=== PATIENT | male | born 1935 | race Caucasian/White ===

== ENCOUNTER → 2020-05-25 08:22 | Outpatient (CLI) | payer MEDICARE, BC ==
--- NOTE | 2020-05-29 08:09 | ST ---
PATIENT:RADHA ESCALANTE MEDICAL RECORD: [id number] SEX: M LOCATION:[facility] ORDER #: ADMISSION DATE: 05/25/20 AGE OF PATIENT: 84 REFERRING PHYSICIAN: INTERPRETING PHYSICIAN: GERARDO ANDERSON MD DATE OF SERVICE: 05/25/2020 NUCLEAR STRESS TEST GATED: Gated is normal with normal wall motion and normal EF 71%. SPECT IMAGING: SPECT imaging was performed. Short axis view: Short axis view shows reversible defect along the inferior base. This is concerned in the horizontal axis with a reversible defect along the inferior base. Vertical axis: Vertical axis shows good update along the septum. FINAL IMPRESSION: 1. Normal gated. Normal EF 71%. 2. Abnormal SPECT imaging with a reversible defect along the inferior base seen in 2 views. Final recommendation: Scan is concerning for underlying ischemic coronary artery disease. LV function remains normal. Consider diagnostic angiography if clinically indicated. TRANSINT:[id number] Voice Confirmation ID: [id number] DOCUMENT ID: [id number] GERARDO ANDERSON MD at 0809 CC: [id number] DICTATION DATE: 05/26/20 1113 ASSEMBLER WATCH TRAIN: 05/27/20 0336 DEP CLI 05/25/20 [facility] [address] [place] [address]
--- NOTE | 2020-05-29 08:09 | EC ---
PATIENT:RADHA ESCALANTE DATE OF SERVICE: 05/25/20 SEX: M MEDICAL RECORD: [id number] DATE OF : 39 LOCATION:[facility] AGE OF PATIENT: 84 ADMISSION DATE: 05/25/20 REFERRING PHYSICIAN: INTERPRETING PHYSICIAN: GERARDO ANDERSON MD ECHOCARDIOGRAM REPORT ECHO CHARGES 4 ECHO COMPLETE Date: 05/25/20 CLINICAL DIAGNOSIS: DYSPNEA, ASSESS EF ECHOCARDIOGRAPHIC MEASUREMENTS (adult normal given) AC root (d.<3.7cm) 3.3 cm LV Septum d (<1.2 cm> 1.4 cm Valve Excursion 1.5 cm LV Septum (systole) 1.6 cm Left Atria (s.<4.0cm> 3.5 cm LVPW d(<1.2cm) 1.6 cm RV (d.<2.3cm) 3.1 cm LVPW (sytole) 1.7 cm LV diastole(<5.6CM) 5.0 cm MV E-F(>70mm/sec) cm LV systole 3.0 cm LVOT Diameter 2.0 cm MV exc.(>10mm) 1.5 cm Est.ejection fraction (50-75%) % DOPPLER: LVIT cm/sec A 101.0cm/sec E 66.0 cm/sec LA cm/sec RVSP 28 mmHg LVOT 106 cm/sec AOP1/2T m/s Asc. Ao 170 cm/sec RVOT 72 cm/sec RA cm/sec PA 122 cm/sec AV Gradient Peak 11.55mmHg AV Mean 5.89 mmHg AV Area 2.4 cm MV Gradient Peak 4.25 mmHg MV Mean 1.62 mmHg MV Area cm COMMENTS: Fancy Needleworker: 2 CRISTOFER JOHN Putty Maker: 3 Dr. Campbell TAPE# PACS Pericardial Effusion N DATE OF SERVICE: Adequate 2D, color flow imaging, spectral Doppler, and M-Mode. FINDINGS: LVH present. LV internal dimension is normal. Wall motion is normal. EF is greater than or equal to 55%. Aortic valve sclerosis without stenosis by Doppler interrogation. Left atrium is normal at 3.5 cm. Mitral valve shows no prolapse. Trace MR. Right side is grossly normal. Mild TR. TRANSINT:[id number] Voice Confirmation ID: [id number] DOCUMENT ID: [id number] ECHOCARDIOGRAM REPORT [id number] RADHA ESCALANTE,GERARDO Betts MD at 0809 CC: [id number] DICTATION DATE: 05/26/20931 DISC PAD GRINDING MACHINE FEEDER: 05/26/201958 DEP CLI 05/25/20 [place] [id number] [place] [address]
== END | disposition home or self-care (01) ==
LOC: D.HCCARDIO 08:22
PROVIDERS: ATTEND Internal Medicine Interventional Cardiology
DX: R06.02 Shortness of breath (principal)

== ENCOUNTER 2020-06-06 06:58 | Day surgery (SDC) | payer MEDICARE, BC ==
[~2020-06-06] VITALS: Ht 182.9 cm; Wt 83.5 kg
--- NOTE | ~2020-06-06 | HEMODYNAMI ---
PATIENT:RADHA ESCALANTE MEDICAL RECORD: [id number] : 39 [facility]ATION[facility] ADMISSION DATE: 06/06/20 Generatedon:19:14 Patient name: RADHA ESCALANTE Patient #: [id number] SSN: [id number] : 1935 Date of study: 06/06/2020 Page: Of Hemodynamic Procedure Report Patient Data Patient Demographics Procedure consent was obtained First Name: RADHA Gender: Male Last Name: AVA : 1935 Patient #: [id number] Age: 84 year(s) Race: SSN: [id number] Additional ID: [id number] Contact details [address]: [address] [place] [address] [place] State: [place] City: [place] Zip code: [address] Past Medical History Performed procedures and imaging results Date Procedure Procedure Results Comments 05/25/2020 Stress testing Positive->Intermediate with SPECT MPI risk Allergies: No known allergies Admission Admission Data Admission Date: 06/06/2020 Admission Time: 6:58 Arrival Date: 06/06/2020 Arrival Time: 0:00 Admit Source: Other Insurance Payor: Medicare [facility] #: [id number] Height (in.): 72 BSA: 2.03 (m2) Height (cm.): 182.88 BMI: 24.28 (kg/m2) Weight (lbs.): 179 Weight (kg.): 81.19 Lab Results Lab Result Date: 06/06/2020 Lab Result Time: 0:00 Biochemistry Name Units Result Min Max BUN mg/dl 24 --(----)-* 7 18 Creatinine mg/dl 1.2 --(---*)-- 0.6 1.3 eGFR ml/min 61.98949 *-(----)-- 90 120 NONAFRICAN CBC Name Units Result Min Max Hematocrit % 38.2 *-(----)-- 42 54 Hemoglobin g/dl 12.8 -*(----)-- 13.5 17.5 Procedure Procedure Types Cath Procedure Diagnostic Procedure [facility] w/Coronaries Sedation Charges Moderate Sedation 25-39 minutes Procedure Description Procedure Date Procedure Date: 06/06/2020 Procedure Start Time: 8:46 Procedure End Time: 9:10 Procedure Staff Name Function Mateo Silver MD Performing Physician Paul Carlisle RN Nurse Cristela Crow RT Monitor Viri Lehman RT Scrub Indication Palpitations Procedure Data Cath Procedure Fluoroscopy Diagnostic fluoroscopy Total fluoroscopy Time: 1.9 time: 1.9 min min Diagnostic fluoroscopy Total fluoroscopy dose: 707 dose: 707 mGy mGy Contrast Material Contrast Material Type Amount (ml) Isovue 370 75 Entry Location Entry Primary Successful Side Size Upsize Upsize Entry Closure Succes sful Closure Location (Fr) 1 (Fr) 2 (Fr) Remarks Device Remarks Femoral Right 5 Fr Exoseal artery Estimated blood loss: 5 ml Diagnostic catheters Device Type Used For End Catheter Placement MULTIPACK JL 4.0 5Fr Procedure catheter MULTIPACK 3DRC 5Fr Procedure catheter MULTIPACK Pigtail 5 Fr Procedure catheter Procedure Complications No complications Procedure Medications Medication Administration Route Dosage 0.9% NaCl I.V. 100 ml/hr Oxygen etCO2 Nasal cannula 2 l/min Heparin Flush Bag added to field 2 bags (1000units/500ml NS) Lidocaine 2% added to field 20 Versed I.V. 1 mg Fentanyl I.V. 25 mcg Hemodynamics Rest BSA: 2.03 (m2) HGB: 12.8 (g/dl) O2 Consumption: Estimated: 230.07 (ml/min) O2 Co nsumption indexed: Estimated:113.33 (ml/min/m) Heart Rate: 69 (bpm) Pressure Samples Time Site Value (mmHg) Purpose Heart Use Rate(bpm) 8:58 LV 148/18,35 Snapshot 73 9:00 AO 138/73(101) Pullback 75 9:00 LV 129/-2,15 Pullback 75 Gradients Valve Time Site 1 Site 2 Mean SEP/DFP Peak To Heart Use (mmHg) (sec/min) Peak Rate (mmHg) (bpm) Aortic 9:00 LV AO 0 6 0 75 129/-2,15 138/73(101) Calculations Valve P-P Mean Valve Index Valve Source Name Gradient Area Flow (cm2) Aortic 0 0 0 0 Snapshots Pre Cath Intra NCS Post Cath Vital Signs Time Heart Resp SPO2 etCO2 NIBP (mmHg) Rhythm Pain Sedation Rate (ipm) (%) (mmHg) Status Level (bpm) 8:29:43 71 16 100 34.9 137/73(106) NSR 0 (11) 10(A) , No pain 8:33:59 74 17 100 34.8 124/71(91) NSR 0 (11) 10(A) , No pain 8:38:13 70 13 97 43 130/63(98) NSR 0 (11) 9(A) , No pain 8:42:27 69 13 98 35.6 119/67(96) NSR 0 (11) 9(A) , No pain 8:46:37 68 13 99 8.1 133/63(105) NSR 0 (11) 9(A) , No pain 8:50:51 68 12 99 29.6 114/67(81) NSR 0 (11) 9(A) , No pain 8:54:56 69 13 98 2.2 123/68(94) NSR 0 (11) 9(A) , No pain 8:59:08 76 13 99 37 114/61(85) NSR 0 (11) 10(A) , No pain 9:03:14 71 14 99 8.1 126/71(101) NSR 0 (11) 10(A) , No pain 9:07:24 70 13 100 37.1 129/67(111) NSR 0 (11) 10(A) , No pain 9:11:34 70 11 100 35.6 131/71(98) NSR 0 (11) 10(A) , No pain Medications Time Medication Route Dose Verified Delivered Reason Notes Effe ctiveness by by 8:33:30 0.9% NaCl I.V. 100 Paul Paul Per ml/hr Orestes Carlisle physician RN RN 8:33:38 Oxygen etCO2 2 Paul Paul for low 02 Nasal l/min Orestes Carlisle sats cannula RN RN 8:33:48 Heparin Flush added 2 Paul Paul used for Bag to bags Orestes Carlisle procedure (1000units/500ml field RN RN NS) 8:34:00 Lidocaine 2% added 20ml Paul Paul for local to vial Orestes Carlisle anesthetic field RN RN 8:34:12 Versed I.V. 1 mg Paul Paul for Lorigan Orestes sedation RN RN 8:34:24 Fentanyl I.V. 25 Paul Paul for mcg Lorigan Lorpablito sedation RN tire setter Log Time Note 7:59:07 Informed consent obtained and on chart 7:59:33 Diagnostic Cath Status : Elective 8:00:26 Arrival Date: 06/06/2020 12:00:00 AM 8:00:28 Admit Source: Other 8:01:18 Insurance Payor : Medicare 8:01:47 Patient Height : 72 inches 8:01:51 Patient Weight : 179 lbs 8:06:51 ACC Patient presents with Stable Angina CCS Anginal Class 2--Slight limitation of ordinary activity. 8:06:54 Procedure Status Elective Heart Cath (OP). 8:08:40 Time tracking: Regular hours (M-F 7:00 - 5:00) 8:08:45 Plan of Care:Hemodynamics will remain stable., Cardiac rhythm will remain stable., Comfort level will be maintained., Respiratory function will remain adequate., Patient/ family verbilizes understanding of procedure., Procedure tolerated without complication., Recovers from procedure without complications.. 8:09:29 H&P Date Dictated: 05/16/2020 Greater than 30 days; new H&P dictated by physician. Or brief H&P completed., Emergent; H&P N/A, Within 30 days and on chart., H&P Addendum completed by physician on day of procedure. (MUST COMPLETE FOR ALL OUTPATIENTS), ER History on chart., New H&P dictated by physician.. 8:09:50 Pre-procedure instructions explained to patient. 8:09:50 Pre-op teaching completed and patient verbalized understanding. 8:09:57 Family unavailable. 8:09:59 Patient NPO since Midnight. 8:10:06 Patient allergic to No known allergies 8:10:13 Alarms reviewed by R. N. 8:10:13 Sharps counted by scrub and verified by R.N. 8:17:11 Stress Test: yes; abnormal inferior 8:17:21 Paul Carlisle RN sent for patient. Start room use. 8:22:30 Patient received from Pre/Post Procedure Room to CCL 1 Alert and oriented. Tansferred to table in Supine position. 8:28:30 Warm blankets applied, and evelin hugger turned on for patient comfort. 8:28:31 Correct patient and procedure confirmed by team. 8:28:31 ECG and BP/O2 sat monitors applied to patient. 8:28:32 Vital chart was started 8:28:33 Full Disclosure recording started 8:28:37 Is the patient allergic to Iodine/contrast media? No. 8:28:39 Was the patient premedicated? Yes 8:28:40 Is patient on blood thinner?No 8:28:42 Patient diabetic? Yes. 8:28:43 If diabetic: On Metformin? Yes 8:28:50 If on Metformin: Last Dose? 06/04/2020 8:28:51 ----Pre-sedation anethsthesia assessment.---- 8:28:54 Previous problem with sedation/anesthesia? No ? 8:28:55 Snore? Yes 8:28:56 Sleep apnea? No 8:28:57 Deviated septum? No 8:28:58 Opens mouth fully? Yes 8:29:00 Sticks out tongue? Yes 8:29:03 Airway obstruction? No ? 8:29:05 Dentures? No ? 8:29:07 Pre procedure: right dorsailis pedis pulse 1+ Palpable, but thready & weak; easily obliterated 8:29:10 Modified Kiko's test Ulnar > 7 seconds. 8:29:13 Patient pain scale 0/10 ?. 8:29:19 IV patent on arrival in left antecubital with 0.9% NaCl at [facility]. 8:29:25 Right groin area was prepped with chlora-prep and draped in sterile fashion 8:30:48 Lab results completed and on chart. 8::54 Lab Result : BUN 24 mg/dl 8::54 Lab Result : Creatinine 1.2 mg/dl 8::54 Lab Result : eGFR NONAFRICAN 61.99401 ml/min 8::54 Lab Result : Hemoglobin 12.8 g/dl 8::54 Lab Result : Hematocrit 38.2 % 8:33:23 Risk of Mortality: 0.2 8:33:25 Risk of blood transfusion: 0.2 8:33:27 Risk of ROGELIO: 0.5 8:33:30 0.9% NaCl 100 ml/hr I.V. was administered by Paul Carlisle RN; Per physician; Verbal order read back and verified. 8:33:31 Baseline sample Acquired. 8:33:33 Rhythm: sinus rhythm 8:33:37 Use device set Femoral Dx 8:33:38 Oxygen 2 l/min etCO2 Nasal cannula was administered by Paul Carlisle RN; for low 02 sats; Verbal order read back and verified. 8:33:38 ACIST Syringe (21277) opened to sterile field. 8:33:39 Bag Decanter (2002S) opened to sterile field. 8:33:39 Medline Cath Pack ([id number]) opened to sterile field. 8:33:41 Tegaderm 4 x 4 (1626W) opened to sterile field. 8:33:42 DIAGNOSTIC Multipack 5Fr catheter set ([id number]) opened to sterile field. 8:33:42 ACIST Manifold (64046) opened to sterile field. 8:33:43 ACIST Hand Control (30284) opened to sterile field. 8:33:44 SHEATH 5FR [place] (TVI944) opened to sterile field. 8:33:45 EMERALD Guide Wire (870-048) opened to sterile field. 8:33:48 Heparin Flush Bag (1000units/500ml NS) 2 bags added to field was administered by Paul Carlisle RN; used for procedure; Verbal order read back and verified. 8:33:52 --------ALL STOP TIME OUT------ 8:33:53 Final Timeout: patient, procedure, and site verified with staff and physician. All members of the team are in agreement. 8:33:55 Right groin site verified by team. 8:33:58 Fire Safety Assessment: A--An alcohol-based skin anteseptic being used preoperatively., C--Open oxygen or nitrous oxide is being used., D--An ESU, laser, or fiber-optic light is being used. 8:34:00 Lidocaine 2% 20ml vial added to field was administered by Paul Carlisle RN; for local anesthetic; Verbal order read back and verified. 8:34:01 Physical assessment completed. ASA score P 2 - A patient with mild systemic disease as per Mateo Silver MD. 8:34:03 2) 60-89 Mildly reduced kidney function, and other findings (as for stage 1) point to kidney disease. 8:34:06 Maximum allowable contrast dose (3.7 X eGFR X 0.75)169 ml. 8:34:10 Sedation plan: IV Moderate Sedation Medication:Versed, Fentanyl 8:34:12 Versed 1 mg I.V. was administered by Paul Carlisle RN; for sedation; Verbal order read back and verified. 8:34:24 Fentanyl 25 mcg I.V. was administered by Paul Carlisle RN; for sedation; Verbal order read back and verified. 8:39:27 Patient allergic to No known allergies 8:40:02 Indication : Palpitations 8:45:52 Procedure started. 8:46:45 Local anesthetic to right femoral artery with Lidocaine 2% by Mateo Silver MD.INITIAL ACCESS ONLY 8:48:34 A 5 Fr sheath was inserted into the Right Femoral artery 8:49:36 A MULTIPACK JL 4.0 5Fr catheter was advanced over the wire and used for Procedure. 8:50:24 LCA angiography performed. 8:50:27 Injector settings: Ml/sec: 3, Volume: 6, 8:52:56 Catheter exchanged over wire. 8:53:11 A MULTIPACK 3DRC 5Fr catheter was advanced over the wire and used for Procedure. 8:55:57 RCA angiography performed. 8:55:59 Injector settings: Ml/sec: 3, Volume: 6, 8:57:11 Catheter exchanged over wire. 8:57:39 A MULTIPACK Pigtail 5 Fr catheter was advanced over the wire and used for Procedure. 8:58:58 LV gram done using INFANTE 8:58:58 LV hemodynamics recorded. 8:59:09 Injector settings: Ml/sec: 5, Volume: 15, 8:59:13 EF : 60 % 9:02:05 Catheter removed. 9:02:09 EXOSEAL 5Fr (EX500) opened to sterile field. 9:04:44 Sheath removed intact; hemostasis achieved with Exoseal to the Right Femoral artery. 9:04:52 Fluoroscopy time 01.90 minutes. 9:04:55 Fluoroscopy dose: 707 mGy 9:04:55 Flurop Dose total: 707 9:05:02 Dose Area Product 65765 mGy/cm. 9:06:04 Contrast amount:Isovue 370 75ml. 9:06:06 Procedure ended.(Physican Out) 9:06:14 Post-op/insertion site Right Femoral artery dressed using a 4 x 4 and Tegaderm. 9:06:19 Post right femoral artery:stable, soft, clean and dry 9:06:21 Post Procedure Pulses reassessed and unchanged 9:06:23 Post procedure: right dorsailis pedis pulse 1+ Palpable, but thready & weak; easily obliterated. 9:06:26 Post-procedure physical assessment completed. ASA score P 2 - A patient with mild systemic disease as per Mateo Silver MD. 9:06:29 Post procedure rhythm: unchanged. 9:06:32 Estimated blood loss: 5 ml 9:06:33 Post procedure instruction explained to patient.Patient verbalizes understanding. 9:06:34 Patient needs reinforcement of post procedure teaching. 9:08:07 Procedure type changed to Cath procedure, Diagnostic procedure, LHC, [facility] w/Coronaries, Sedation Charges, Moderate Sedation 25-39 minutes 9:09:09 Procedure and supply charges have been captured, reviewed, submitted and are correct. 9:09:13 Procedure Complication : No complications 9:09:19 [facility] Findings: MVD- CABG consult 9:09:20 Operative report dictated upon procedure completion. 9:09:21 See physician's report for complete and final results. 9:09:23 Report given to Pre/Post Procedure Room. 9:09:28 Patient transfered to Pre/Post Procedure Room with Stretcher. 9:10:29 Procedure ended. 9:10:29 Full Disclosure recording stopped 9:10:36 End room use (Document Last) 9:14:33 Vital chart was stopped Device Usage Item Name Manufacture Quantity Catalog Hospital Part Current Minimal L ot# / Number Charge Number Stock Stock Serial# Code ACIST Acist 1 68744 800854 607869 347351 20 Syringe DDN (92030) Systems Inc Bag Microtek 1 441639 02502 652036 5 Decanter Medical Inc. () Medline Medline 1 [id number] 630466 99541 231246 5 Cath Pack ([id number]) Tegaderm 4 3M 1 1626W 123274 220258 930896 5 x 4 (1626W) DIAGNOSTIC Cardinal 1 KS7833 550384 64837 374364 30 Mobstats Health 5Fr catheter set (VX2910) ACIST Acist 1 29426 925707 042711 630748 5 Manifold Medical (88425) Systems Inc ACIST Hand Acist 1 34163 763998 550382 827352 5 Control Medical (46451) Systems Inc SHEATH 5FR [place] 1 EQR309 119759 867396 269287 5 [place] (MWL494) EMERALD Cardinal 1 502-386 577961 195633 341394 5 Guide Wire Health (502-173) MULTIPACK Cardinal 1 832378 5 JL 4.0 5Fr Health catheter MULTIPACK Cardinal 1 484175 5 3DRC 5Fr Health catheter MULTIPACK Cardinal 1 973675 5 Pigtail 5 Health Fr catheter EXOSEAL 5Fr Cardinal 1 EX500 733526 965940 717184 10 (EX500) Health Signature Audit [place] Stage Time Signature Unsigned Intra-Procedure 06/06/2020 Cristela Crow 9:13:33 AM RT(R) Intra-Procedure 06/06/2020 Paul 9:14:17 AM Orestes RN Intra-Procedure 06/06/2020 Mateo Silver MD 9:14:32 AM Signatures Performing Physician : Signature : Mateo Silver MD Date : Time : Nurse : Paul Carlisle Signature : RN Date : Time : Monitor : Cristela Crow Signature : RT Date : Time : [facility] [address] [place] [address]
[2020-06-06] MEDS ORDERED: METFORMIN HCL500 M1 PO (07:44)
[2020-06-06] MEDS ORDERED: LEVOTHYROXINE125 MCG PO (07:44)
[2020-06-06] MEDS ORDERED: PROSCAR5 MG PO (07:44)
[2020-06-06] MEDS ORDERED: PREDNISONE20 MG PO (07:44)
[2020-06-06] MEDS ORDERED: PEPCID AC20 MG PO (07:45)
[2020-06-06] MEDS ORDERED: NORVASC5 MG PO (07:45)
[2020-06-06] MEDS ORDERED: GLUCOPHAGE XR750 MG PO (07:45)
[2020-06-06] MEDS ORDERED: NASONEX NASAL S17 GM NS (07:46)
[2020-06-06] MEDS ORDERED: KENALOG 0.1 % 115 GM TOPICAL (07:46)
[2020-06-06 08:00] VITALS: BP 152/69; Ht 182.9 cm; Wt 83.5 kg
[2020-06-06 08:16] LABS: CALCIUM 9.2 mg/dL (8.5-10.1); CARBON DIOXIDE 29.7 mmol/L (21.0-32.0); CHOL - HDL RATIO 3.2 ratio (2.3-4.9); CREATININE - SERUM 1.2 mg/dL (0.6-1.3); LDL-HDL RATIO 1.7 ratio (1.5-3.5); POTASSIUM - SERUM 3.7 mmol/L (3.5-5.1)
[2020-06-06 08:17] LABS: HEMATOCRIT 38.2 % (42.0-54.0); HEMOGLOBIN 12.8 g/dL (13.5-17.5); LYMPHOCYTE ABS# 3.52 10x3/uL (1.32-3.57); MCH 28.8 pg (26.0-34.0); MCHC 33.5 g/dL (31.0-37.0); MEAN PLATELET VOLUME 9.3 fL (7.4-10.4); NEUTROPHIL ABS# 0.76 10x3/uL (1.78-5.38); PLATELET COUNT 138 10x3/uL (130-400); RBC 4.44 10x6/uL (4.20-6.10); RDW 16.5 % (11.5-14.5); WBC 5.1 10x3/uL (4.8-10.8)
--- NOTE | 2020-06-06 09:25 | NUR ---
PT REC'D TO CATH RECOVERY ROOM 5 VIA STRETCHER. MONITORS ESTAB. AT BS. SEE POST CATH STEELSCOPE OPERATOR. ALARMS ON AND C/L IN REACH.
--- NOTE | 2020-06-06 09:40 | NUR ---
R GROIN EXOSEAL SITE SOFT, NO S/S BLEEDING OR HEMATOMA. R LEG/FOOT WARM WITH PALP PULSES AND BRISK CAP REFILL. VSS. PT DENIES PAIN OR NEEDS. TAKING ICE CHIPS. ALARMS ON AND C/L IN REACH.
--- NOTE | 2020-06-06 10:10 | NUR ---
R GROIN EXOSEAL SITE SOFT, NO S/S BLEEDING OR HEMATOMA. R LEG/FOOT WARM WITH PALP PULSES AND BRISK CAP REFILL. IV PATENT. VSS. PT DENIES PAIN OR NEEDS. ALARMS ON AND C/L IN REACH.
--- NOTE | 2020-06-06 10:20 | NUR ---
DR. COHEN IN TO SEE PT. SPOKE EXTENSIVELY WITH PT AND HIS RE: RESULTS AND OPTIONS TO PROCEDE WITH. WILL SCHEDULE OFFICE CONSULTATION FOR FRIDAY.
--- NOTE | 2020-06-06 10:45 | NUR ---
R GROIN EXOSEAL SITE SOFT, NO S/S BLEEDING OR HEMATOMA. PULSES PALP. HOB ELEVATED. SANDWICH TRAY PROVIDED. VSS. ALARMS ON AND C/L IN REACH.
[2020-06-06 10:46] LABS: HYPER SEGMENTED NEUTROPHILS OCC; LYMPHOCYTES 74 % (15-50); MONOCYTES 10 % (2-11); NEUTROPHILS 13 % (40-80); PLATELET MORPHOLOGY NORMAL PLT MORPH
[2020-06-06 10:48] LABS: ANISOCYTOSIS 1+; PLATELET ESTIMATE NORMAL; POLYCHROMASIA OCC
--- NOTE | 2020-06-06 11:15 | NUR ---
PT VOIDED 250 ML CLEAR, YELLOW URINE IN URINAL. PT ATE ALL OF SANDWICH TRAY, VSS. R GROIN SITE SOFT, NO S/S BLEEDING OR HEMATOMA. PULSES PALP. C/L IN REACH.
--- NOTE | 2020-06-06 11:45 | NUR ---
ALL DISCHARGE INSTRUCTIONS REVIEWED WITH PT AND HIS , INCLUDING RESTRICTIONS, MEDS AND F\U APPT, BOTH VERBALIZE UNDERSTANDING.
--- NOTE | 2020-06-06 11:50 | NUR ---
PIV D/C'D INTACT, DSG APPLIED. R GROIN SITE SOFT, C/D/I. PT ALLOWED UP TO GET DRESSED AND GO TO BR INDEPENDENTLY.
--- NOTE | 2020-06-06 11:58 | NUR ---
PT D/C'D VIA WC TO PRIVATE VEHICLE WITH ALL PAPERWORK AND BELONGINGS.
== END 2020-06-06 11:58 | disposition home or self-care (01) ==
LOC: D.CATH 06:58
PROVIDERS: ATTEND Internal Medicine Cardiovascular Disease
DX: I20.8 Other forms of angina pectoris (principal); R94.39 Abnormal result of other cardiovascular function study; I10 Essential (primary) hypertension; R00.2 Palpitations; R06.09 Other forms of dyspnea

== ENCOUNTER 2020-06-15 06:43 | Day surgery (SDC) | payer MEDICARE, BC ==
[~2020-06-15] VITALS: Ht 182.9 cm; Wt 86.5 kg
--- NOTE | ~2020-06-15 | HEMODYNAMI ---
PATIENT:RADHA ESCALANTE MEDICAL RECORD: [id number] : 39 LOCATION:[facility] ADMISSION DATE: 06/15/20 Generatedon:18:52 Patient name: RADHA ESCALANTE Patient #: [id number] SSN: [id number] : 1935 Date of study: 06/15/2020 Page: Of Hemodynamic Procedure Report Patient Data Patient Demographics Procedure consent was obtained First Name: RADHA Gender: Male Last Name: AVA : 1935 Patient #: [id number] Age: 84 year(s) Race: SSN: [id number] Additional ID: [id number] Contact details Address: [address] [place] [address] [place] State: [place] City: [place] Zip code: [address] Past Medical History Allergies: No known allergies Admission Admission Data Admission Date: 06/15/2020 Admission Time: 6:43 Arrival Date: 06/15/2020 Arrival Time: 0:00 Admit Source: Other Insurance Payor: Medicare [facility] #: [id number] Height (in.): 72 BSA: 2.07 (m2) Height (cm.): 182.88 BMI: 25.36 (kg/m2) Weight (lbs.): 187 Weight (kg.): 84.82 Lab Results Lab Result Date: 06/15/2020 Lab Result Time: 0:00 Biochemistry Name Units Result Min Max BUN mg/dl 25 --(----)-* 7 18 Creatinine mg/dl 1.2 --(---*)-- 0.6 1.3 eGFR ml/min 61.53216 *-(----)-- 90 120 NONAFRICAN CBC Name Units Result Min Max Hematocrit % 37.1 *-(----)-- 42 54 Hemoglobin g/dl 12.1 *-(----)-- 13.5 17.5 Procedure Procedure Types Cath Procedure Sedation Charges Moderate Sedation 25-39 minutes PCI Procedure Coronary Stent Coronary Stent Initial Hemochron ACT Test Procedure Description Procedure Date Procedure Date: 06/15/2020 Procedure Start Time: 8:19 Procedure End Time: 8:45 Procedure Staff Name Function Mateo Silver MD Performing Physician Aurora Elliott RN Nurse Viri Lheman RT Scrub Cristela Crow RT Monitor Procedure Data Cath Procedure Fluoroscopy Diagnostic fluoroscopy Total fluoroscopy Time: 3.4 time: 3.4 min min Diagnostic fluoroscopy Total fluoroscopy dose: 577 dose: 577 mGy mGy Contrast Material Contrast Material Type Amount (ml) Isovue 370 98 Entry Location Entry Primary Successful Side Size Upsize Upsize Entry Closure Succes sful Closure Location (Fr) 1 (Fr) 2 (Fr) Remarks Device Remarks Femoral Right 6 Fr Exoseal artery Short Estimated blood loss: 10 ml Procedure Complications No complications Procedure Medications Medication Administration Route Dosage Oxygen etCO2 Nasal cannula 2 l/min Lidocaine 2% added to field 20 0.9% NaCl I.V. 100 ml/hr Versed I.V. 1 mg Fentanyl I.V. 50 mcg Heparin Bolus I.V. 8500 units Nitroglycerin IC/IA I.A. 100 mcg Versed I.V. 1 mg Fentanyl I.V. 50 mcg Nitroglycerin IC/IA I.A. 100 mcg Cardene I.C. 300 mcg Plavix P.O. 600 mg Hemodynamics Rest BSA: 2.07 (m2) HGB: 12.1 (g/dl) O2 Consumption: Estimated: 237.41 (ml/min) O2 Co nsumption indexed: Estimated:114.69 (ml/min/m) Heart Rate: 72 (bpm) Snapshots Pre Cath Intra NCS Post Cath Vital Signs Time Heart Resp SPO2 etCO2 NIBP (mmHg) Rhythm Pain Sedation Rate (ipm) (%) (mmHg) Status Level (bpm) 8:03:48 76 19 99 0 139/73(111) NSR 0 (11) 10(A) , No pain 8:08:00 69 12 98 0 131/77(99) NSR 0 (11) 10(A) , No pain 8:12:18 65 12 100 24.4 133/68(115) NSR 0 (11) 10(A) , No pain 8:16:36 65 13 93 37.4 131/66(109) NSR 0 (11) 10(A) , No pain 8:20:52 66 14 100 36.6 133/68(109) NSR 0 (11) 9(A) , No pain 8:24:58 70 12 98 34.3 102/68(84) NSR 0 (11) 9(A) , No pain 8:29:10 67 13 99 38.1 120/57(97) NSR 0 (11) 9(A) , No pain 8:33:21 71 12 99 34.3 109/65(79) NSR 0 (11) 9(A) , No pain 8:37:33 70 10 100 32 119/65(101) NSR 0 (11) 9(A) , No pain 8:41:47 71 11 100 38.8 127/66(101) NSR 0 (11) 9(A) , No pain 8:46:03 70 10 100 39.6 134/75(115) NSR 0 (11) 10(A) , No pain 8:50:21 70 10 100 35.1 136/77(114) NSR 0 (11) 10(A) , No pain Medications Time Medication Route Dose Verified Delivered Reason Notes Effectiveness by by 8:05:16 Oxygen etCO2 2 Mateo Buffie used for Nasal l/min Nadeem Elliott RN procedure cannula 8:05:23 Lidocaine 2% added 20ml Mateo Mateo for local to vial Nadeem Silver MD anesthetic field 8:06:04 0.9% NaCl I.V. 100 Mateo Buffie Per physician ml/hr Nadeem Elliott RN 8:13:37 Versed I.V. 1 mg Mateo Buffie for sedation Nadeem Elliott RN 8:13:42 Fentanyl I.V. 50 Mateo Buffie for sedation mcg Nadeem Elliott RN 8:19:41 Versed I.V. 1 mg Mateo Mateo for sedation Nadeem Silver MD 8:19:45 Fentanyl I.V. 50 Mateo Mateo for sedation mcg Nadeem Silver MD 8:24:17 Heparin Bolus I.V. 8500 Mateo Buffie for verified units Nadeem Elliott RN anticoagulation with dr silver 8:24:30 Nitroglycerin I.A. 100 Mateo Mateo for IC/IA mcg Nadeem Silver MD vasodilation 8:29:50 Nitroglycerin I.A. 100 Mateo Mateo for IC/IA olaf Silver MD vasodilation 8:33:43 Cardene I.C. 300 Mateo Mateo for olaf Silver MD vasodilation 8:44:57 Plavix P.O. 600 Mateo Buffie for mg Nadeem Elliott RN antiplatelet therapy Procedure Log Time Note 7:27:54 Informed consent obtained and on chart 7:28:11 Diagnostic Cath Status : Elective 7:30:00 Patient Height : 72 inches 7:30:03 Patient Weight : 187 lbs 7:30:09 Insurance Payor : Medicare 7:30:11 Arrival Date: 06/15/2020 12:00:00 AM 7:30:31 Admit Source: Other 7:30:55 ACC Patient presents with Stable Angina CCS Anginal Class 2--Slight limitation of ordinary activity. 7:30:58 Procedure Status PCI. 7:31:01 Time tracking: Regular hours (M-F 7:00 - 5:00) 7:31:06 Plan of Care:Hemodynamics will remain stable., Cardiac rhythm will remain stable., Comfort level will be maintained., Respiratory function will remain adequate., Patient/ family verbilizes understanding of procedure., Procedure tolerated without complication., Recovers from procedure without complications.. 7:31:15 H&P Date Dictated: 06/12/2020 Within 30 days and on chart.. 7:31:18 Family in waiting room. 7:31:20 Patient NPO since Midnight. 7:31:26 Patient allergic to No known allergies 7:31:35 Stress Test: no; N/A ? 7:31:38 Alarms reviewed by R. N. 7:31:39 Sharps counted by scrub and verified by R.N. 7:38:00 Lab Result : BUN 25 mg/dl 7:38:00 Lab Result : Creatinine 1.2 mg/dl 7:38:00 Lab Result : eGFR NONAFRICAN 61.60757 ml/min 7:38:00 Lab Result : Hemoglobin 12.1 g/dl 7:38:00 Lab Result : Hematocrit 37.1 % 7:38:04 Lab results completed and on chart. 7:51:44 Aurora Elliott RN sent for patient. Start room use. 7:54:37 Patient received from Pre/Post Procedure Room to CCL 1 Alert and oriented. Tansferred to table in Supine position. 7:54:39 Warm blankets applied, and evelin hugger turned on for patient comfort. 7:54:39 Correct patient and procedure confirmed by team. 7:54:40 ECG and BP/O2 sat monitors applied to patient. 7:54:41 Pre-procedure instructions explained to patient. 7:54:42 Pre-op teaching completed and patient verbalized understanding. 7:54:44 Is the patient allergic to Iodine/contrast media? No. 7:54:45 Was the patient premedicated? Yes 8:02:40 Vital chart was started 8:02:41 Baseline sample Acquired. 8:02:45 Rhythm: sinus rhythm 8:02:46 Full Disclosure recording started 8:02:52 Is patient on blood thinner?No 8:02:53 Patient diabetic? Yes. 8:02:55 If diabetic: On Metformin? Yes 8:02:59 If on Metformin: Last Dose? 06/13/2020 8:03:00 ----Pre-sedation anethsthesia assessment.---- 8:03:03 Previous problem with sedation/anesthesia? No ? 8:03:04 Snore? Yes 8:03:06 Sleep apnea? Unknown 8:03:07 Deviated septum? No 8:03:08 Opens mouth fully? Yes 8:03:09 Sticks out tongue? Yes 8:03:11 Airway obstruction? No ? 8:03:13 Dentures? No ? 8:03:16 Patient pain scale 0/10 ?. 8:03:22 IV patent on arrival in left antecubital with 0.9% NaCl at O. 8:03:28 Right groin area was prepped with chlora-prep and draped in sterile fashion 8:05:00 Risk of Mortality: 0.3 8:05:02 Risk of blood transfusion: 0.5 8:05:05 Risk of ROGELIO: 0.4 8:05:16 Oxygen 2 l/min etCO2 Nasal cannula was administered by Aurora Elliott RN; used for procedure; Verbal order read back and verified. 8:05:23 Lidocaine 2% 20ml vial added to field was administered by Mateo Silver MD; for local anesthetic; Verbal order read back and verified. 8:05:41 Use device set Femoral Dx 8:05:43 Use device set SILVER PCI 8:05:50 Medline Cath Pack ([id number]) opened to sterile field. 8:05:52 ACIST Hand Control (82829) opened to sterile field. 8:05:54 ACIST Syringe (93482) opened to sterile field. 8:05:55 Bag Decanter (2002S) opened to sterile field. 8:05:56 ACIST Manifold (52378) opened to sterile field. 8:06:02 TUBING High Pressure Extension Tubing (Silver) ([id number]) opened to sterile field. 8:06:04 0.9% NaCl 100 ml/hr I.V. was administered by Aurora Elliott RN; Per physician; Verbal order read back and verified. 8:06:04 BMW 300cm Baxter 2 J wire ([id number]) opened to sterile field. 8:06:09 SHEATH 6FR Bethelridge (FRY972) opened to sterile field. 8:06:12 INFLATOR Merit BasixCompak (BB6859) opened to sterile field. 8:12:07 --------ALL STOP TIME OUT------ 8:12:09 Final Timeout: patient, procedure, and site verified with staff and physician. All members of the team are in agreement. 8:12:11 Right groin site verified by team. 8:12:13 Fire Safety Assessment: A--An alcohol-based skin anteseptic being used preoperatively., C--Open oxygen or nitrous oxide is being used., D--An ESU, laser, or fiber-optic light is being used. 8:12:15 Physical assessment completed. ASA score P 2 - A patient with mild systemic disease as per Mateo Silver MD. 8:12:17 2) 60-89 Mildly reduced kidney function, and other findings (as for stage 1) point to kidney disease. 8:12:19 Maximum allowable contrast dose (3.7 X eGFR X 0.75)169 ml. 8:12:22 Sedation plan: IV Moderate Sedation Medication:Versed, Fentanyl 8:13:37 Versed 1 mg I.V. was administered by Aurora Elliott RN; for sedation; Verbal order read back and verified. 8:13:42 Fentanyl 50 mcg I.V. was administered by Aurora Elliott RN; for sedation; Verbal order read back and verified. 8:19:41 Versed 1 mg I.V. was administered by Mateo Silver MD; for sedation; Verbal order read back and verified. 8:19:44 Procedure started. 8:19:45 Fentanyl 50 mcg I.V. was administered by Mateo Silver MD; for sedation; Verbal order read back and verified. 8:19:49 Local anesthetic to right femoral artery with Lidocaine 2% by Mateo Silver MD.INITIAL ACCESS ONLY 8:21:38 A 6 Fr Short sheath was inserted into the Right Femoral artery 8:22:16 GUIDE 6FR XBLAD 3.5 catheter ([id number]) opened to sterile field. 8:22:24 6 Fr XBLAD 3.5 guide catheter was inserted over the wire 8:24:17 Heparin Bolus 8500 units I.V. was administered by Aurora Elliott RN; for anticoagulation; verified with dr silver Verbal order read back and verified. 8:24:30 Nitroglycerin IC/IA 100 mcg I.A. was administered by Mateo Silver MD; for vasodilation; Verbal order read back and verified. 8:25:42 BMW 300 wire advanced. 8:26:30 Wire advanced across lesion. 8:26:48 Pre PCI Site: [place] LAD has 90% stenosis. 8:28:32 Inflate balloon Inflation number: 1 A EUPHORA 2.0 x 20 Balloon ([id number]) was prepped and advanced across the Prox LAD , then inflated to 12 HORTENSIA for 0:19 (min:sec) . 8:29:40 Balloon removed over the wire. 8:29:50 Nitroglycerin IC/IA 100 mcg I.A. was administered by Mateo Silver MD; for vasodilation; Verbal order read back and verified. 8:33:43 Cardene 300 mcg I.C. was administered by Mateo Silver MD; for vasodilation; Verbal order read back and verified. 8:37:58 Place stent Inflation Number: 2 A ANDREA RX 2.5 x 18 stent ([id number]) was prepped and advanced across the Prox LAD . The stent was deployed at 13 HORTENSIA for 0:17 (min:sec) . 8:39:36 Stent catheter was removed intact over wire. 8:40:05 Wire removed. 8:40:08 Guide catheter removed. 8:40:13 Tegaderm 4 x 4 (1626W) opened to sterile field. 8:40:17 EXOSEAL 6Fr (EX600) opened to sterile field. 8:40:42 Fluoroscopy dose: 577 mGy 8:41:32 Sheath removed intact; hemostasis achieved with Exoseal to the Right Femoral artery. 8:41:34 Fluoroscopy time 03.40 minutes. 8:41:42 Flurop Dose total: 577 8:41:44 Dose Area Product 58545 mGy/cm. 8:41:47 Sharps counted by scrub and verified by R.N. 8:42:36 Procedure ended.(Physican Out) 8:42:54 Maximum allowable dose exceeded? No. 8:42:57 Contrast amount:Isovue 370 98ml. 8:43:01 Post-op/insertion site Right Femoral artery dressed using a 4 x 4 and Tegaderm. 8:43:06 Post right femoral artery:stable, soft, clean and dry 8:43:08 Post Procedure Pulses reassessed and unchanged 8:43:10 Post procedure: right dorsailis pedis pulse 1+ Palpable, but thready & weak; easily obliterated. 8:43:13 Post-procedure physical assessment completed. ASA score P 2 - A patient with mild systemic disease as per Mateo Silver MD. 8:43:16 Post procedure rhythm: unchanged. 8:43:20 Estimated blood loss: 10 ml 8:43:21 Post procedure instruction explained to patient.Patient verbalizes understanding. 8:43:22 Patient needs reinforcement of post procedure teaching. 8:44:18 Procedure type changed to Cath procedure, Sedation Charges, Moderate Sedation 25-39 minutes, PCI procedure, Coronary Stent, Coronary Stent Initial, Hemochron ACT Test 8:44:49 Procedure and supply charges have been captured, reviewed, submitted and are correct. 8:44:52 Procedure Complication : No complications 8:44:56 [facility] Findings: MVD- PCI performed (see procedure note) 8:44:57 Plavix 600 mg P.O. was administered by Aurora Elliott RN; for antiplatelet therapy; Verbal order read back and verified. 8:44:57 Operative report dictated upon procedure completion. 8:44:57 See physician's report for complete and final results. 8:44:59 Report given to Pre/Post Procedure Room. 8:45:03 Patient transfered to Pre/Post Procedure Room with Stretcher. 8:45:05 Procedure ended. 8:45:05 Full Disclosure recording stopped 8:45:12 ACC-PCI Only Patient was given prescriptions, or instructed by Mateo Silver MD to start/continue the following medications upon discharge: Plavix 8:45:14 End room use (Document Last) 8:45:30 End room use (Document Last) 8:45:46 End room use (Document Last) 8:48:24 ACT drawn and resulted at out of range high seconds. (normal therapeutic range 180-240 seconds). 8:52:44 Vital chart was stopped Intervention Summary Intervention Notes Time ActionType Lesion and Equipment Used Action# Pressure Duration Attributes 8:28:32 Inflate Prox LAD EUPHORA 2.0 x 1 12 00:19 balloon 20 Balloon ([id number]) 8:37:58 Place stent Prox LAD ANDREA RX 2.5 x 2 13 00:17 18 stent ([id number]) Device Usage Item Name Manufacture Quantity Catalog Hospital Part [facility] Lot# / Number Charge Number Stock Stock Serial# Code Medline Cath Medline 1 [id number] 101006 72421 [id number] 5 Pack ([id number]) ACIST Hand Acist 1 77309 694056 225159 568855 5 Control Medical (17107) Systems Inc ACIST Syringe Acist 1 91596 546692 307064 278523 20 (57080) Medical Systems Inc Bag Decanter Microtek 1 2002S 859492 87165 874733 5 (2002S) Medical Inc. ACIST Manifold Acist 1 30532 539410 996576 861068 5 (71036) Medical Systems Inc TUBING High Merit 1 [id number] 053676 04939 325665 10 Pressure Medical Extension Tubing (Silver) ([id number]) BMW 300cm Lozano 1 [id number] 821552 191697 263327 5 Baxter 2 J Vascular wire ([id number]) SHEATH 6FR Terumo 1 [id number] 237326 705785 754764 40 Bethelridge (YUK840) INFLATOR Merit Merit 1 KY4375 141083 772011 510068 15 BasSartamtSportsy Medical (PL6391) GUIDE 6FR Cardinal 1 [id number] 833215 313128 700139 10 XBLAD 3.5 Health catheter ([id number]) EUPHORA 2.0 x Medtronic 1 [id number] 640642 659813 012613 5 [id number] 20 Balloon ([id number]) ANDREA RX 2.5 x Medtronic 1 [id number] 551672 6228364 702876 5 [id number] 18 stent ([id number]) EXOSEAL 6Fr Cardinal 1 EX600 974591 725411 899842 10 (EX600) [facility] Tegaderm 4 x 4 3M 1 1626W 546804 698942 288222 5 (1626W) Signature Audit [place] Stage Time Signature Unsigned Intra-Procedure 06/15/2020 Cristela Crow 8:45:30 AM RT(R) Intra-Procedure 06/15/2020 Aurora Elliott RN 8:45:46 AM Intra-Procedure 06/15/2020 Mateo Silver MD 8:52:43 AM [facility] [address] [place] [address]
[~2020-06-15 06:43] MED LIST: GLUCOPHAGE XR750 MG PO; KENALOG 0.1 % 115 GM TOPICAL; LEVOTHYROXINE125 MCG PO; METFORMIN HCL500 M1 PO; NASONEX NASAL S17 GM NS; NORVASC5 MG PO; PEPCID AC20 MG PO; PREDNISONE20 MG PO; PROSCAR5 MG PO
[2020-06-15 07:05] VITALS: BP 152/68; Ht 182.9 cm; Wt 86.5 kg
[2020-06-15 07:25] LABS: HEMATOCRIT 37.1 % (42.0-54.0); HEMOGLOBIN 12.1 g/dL (13.5-17.5); LYMPHOCYTE ABS# 3.37 10x3/uL (1.32-3.57); MCH 28.8 pg (26.0-34.0); MCHC 32.6 g/dL (31.0-37.0); MCV 88.3 fL (80.0-100.0); MEAN PLATELET VOLUME 9.6 fL (7.4-10.4); NEUTROPHIL ABS# 0.91 10x3/uL (1.78-5.38); RDW 16.5 % (11.5-14.5); WBC 5.3 10x3/uL (4.8-10.8)
[2020-06-15 07:30] LABS: ANION GAP 10.7 mmol/L (8-16); CARBON DIOXIDE 30.9 mmol/L (21.0-32.0); CREATININE - SERUM 1.2 mg/dL (0.6-1.3); POTASSIUM - SERUM 3.6 mmol/L (3.5-5.1)
[2020-06-15 07:32] LABS: PLATELET COUNT 85 10x3/uL (130-400)
[2020-06-15] MEDS ORDERED: PLAVIX75 MG PO (09:13)
--- NOTE | 2020-06-15 09:14 | NUR ---
PT RECEIVED VIA STRETCHER BACK TO ROOM 7 FOR RECOVERY. PT DROWSY BUT VERBALLY AROUSABLE. IV PATENT INFUSING VIA ORDERS TO LARM. PT PLACED ON CARDIAC MONITORS, HR NSR RATE 69, BP 144/72, RR 15, SAT 100 ON ROOM AIR. 6FR EXOCELE TO R GROIN, SITE SOFT NO S/S HEMATOMA OR BLEEDING. TEGADERM DRESSING CDI. PT INSTRUCTED TO KEEP HEAD ON PILLOW AND LEG STRAIGHT, HE VERBALIZED UNDERSTANDING. LEG PINK AND WARM, PEDAL PULSES PALPABLE. AT BEDSIDE. PT DENIES CHEST PAIN OR DISCOMFORT AT THIS TIME. CALL LIGHT IN REACH
[2020-06-15 09:46] LABS: ANISOCYTOSIS OCC; LYMPHOCYTES 54 % (15-50); MONOCYTES 20 % (2-11); NEUTROPHILS 26 % (40-80); PLATELET ESTIMATE DECREASED; ROULEAUX OCC
--- NOTE | 2020-06-15 09:46 | NUR ---
PT VOIDED 200 CC CLEAR YELLOW URINE IN URINAL. PO FLUIDS GIVEN PER REQUEST. R GROIN SOFT, DRESSING REMAINS CDI NO S/S HEMATOMA OR BLEEDING. CALL LIGHT IN REACH, AT BEDSIDE.
--- NOTE | 2020-06-15 10:30 | NUR ---
PT RESTING W/O COMPLAINTS. R GROIN SOFT, DRESSING REMAINS CDI NO S/S HEMATOMA OR BLEEDING NOTED. VSS AT PRESENT. CALL LIGHT IN REACH, REMAINS AT BS
--- NOTE | 2020-06-15 11:03 | NUR ---
300 CC CLEAR YELLOW URINE VIA URINAL. R GROIN SOFT, DRESSING CDI NO S/S HEMATOMA OR BLEEDING NOTED. VSS AT PRESENT. CALL LIGHT IN REACH
--- NOTE | 2020-06-15 11:30 | NUR ---
R GROIN SOFT, NO S/S HEMATOMA. NO NEEDS REQUESTED
--- NOTE | 2020-06-15 11:50 | NUR ---
HOB ELEVATED, SANDWICH AND DRINK SERVED. CALL LIGHT IN REACH, AT BEDSIDE. VSS AT PRESENT. GROIN REMAINS SOFT, NO S/S HEMATOMA OR BLEEDING.
--- NOTE | 2020-06-15 12:20 | NUR ---
PT TOLERATING LUNCH W/O DIFFICULITY. GROIN SOFT, DRESSING REMAINS CDI NO S/S HEMATOMA OR BLEEDING NOTED. VSS, CALL LIGHT IN REACH. DENIES OTHER NEEDS AT THIS TIME.
--- NOTE | 2020-06-15 12:45 | NUR ---
DISCHARGE INSTRUCTIONS REVIEWED W PT AND , BOTH VERBALIZED UNDERSTANDING. EXPLAINED IMPORTANCE OF GETTING PLAVIX FILLED AND STARTING TOMORROW. IV REMOVED W CATH INTACT, MONITORS REMOVED. PT UP TO DRESS W ASSIST FROM .
--- NOTE | 2020-06-15 12:55 | NUR ---
PT DISCHARGED VIA WC TO WAITING IN PRIVATE VEHICLE. PT HAD ALL BELONGINGS AND DISCHARGE PAPERWORK
== END 2020-06-15 12:50 | disposition home or self-care (01) ==
LOC: D.CATH 06:43
PROVIDERS: ATTEND Internal Medicine Cardiovascular Disease
DX: R94.39 Abnormal result of other cardiovascular function study (principal); I25.118 Atherosclerotic heart disease of native coronary artery with other forms of angina pectoris; I10 Essential (primary) hypertension; R07.9 Chest pain, unspecified